=== PATIENT | female | born 1945 | race Caucasian/White ===

== ENCOUNTER 2023-11-30 00:50 | Emergency (ER) | payer OTHER ==
[~2023-11-30] VITALS: Ht 154.9 cm; Wt 68.0 kg
[2023-11-30 00:55] VITALS: BP 160/87; PULSE 68; RESP 17; TEMP 97.8; O2SAT 98
[2023-11-30 01:10] VITALS: BP 156/82; PULSE 68; RESP 17; TEMP 97.8
[2023-11-30 01:11] VITALS: O2SAT 98
[2023-11-30 01:15] LABS: APPEARANCE,URINE CLEAR (CLEAR); BILIRUBIN,URINE NEGATIVE (NEGATIVE); BLOOD, URINE 2+ (NEGATIVE); COLOR,URINE YELLOW (YELLOW); LEUKOCYTE ESTERASE ,URINE 1+ (NEGATIVE); NITRITE, URINE NEGATIVE (NEGATIVE); PROTEIN,URINE NEGATIVE (NEGATIVE); UGLUCOSE NEGATIVE (NEGATIVE); UROBILINOGEN,URINE 0.2 EU/dL (0.2 - 1)
[2023-11-30 01:22] LABS: BASOPHILS # (AUTO) 0.1 K/uL (0.00-0.22); BASOPHILS % (AUTO) 0.8 % (0.0-2.0); EOSINOPHILS # (AUTO) 0.1 K/uL (0-0.4); EOSINOPHILS % (AUTO) 1.7 % (0.0-4.0); HEMATOCRIT 34.1 % (36-48); HEMOGLOBIN 11.7 g/dL (12.0-16.0); LYMPHOCYTES # (AUTO) 2.6 K/uL (2.5-16.5); LYMPHOCYTES % (AUTO) 40.2 % (20.5-51.1); MEAN CORPUSCULAR HEMOGLOBIN 32 pg (27-31); MEAN CORPUSCULAR HGB CONC 34 g/dL (33-37); MEAN CORPUSCULAR VOLUME 94.8 fL (80-94); MONOCYTES # (AUTO) 0.5 K/uL (0.8-1.0); MONOCYTES % (AUTO) 7.9 % (1.7-9.3); NEUTROPHILS # (AUTO) 3.3 K/uL (1.8-7.7); NEUTROPHILS % (AUTO) 49.4 % (42.2-75.2); PLATELET COUNT (AUTO) 223 K/uL (140-450); RED CELL DISTRIBUTION WIDTH 13.2 % (11.6-13.7); WHITE BLOOD COUNT (AUTO) 6.6 K/uL (4.8-10.8)
[2023-11-30 01:23] LABS: BACTERIA,URINE 10-30 (MOD) /HPF (None Seen); MUCUS,URINE 1+ /LPF (None Seen); SQUAMOUS EPITHELIAL CELL,UR 0-3 (FEW) /LPF (0-3 (FEW))
[2023-11-30 01:32] LABS: ANION GAP 12.5 (8-16); CARBON DIOXIDE 26.4 mmol/L (21-32); CHLORIDE 100 mmol/L (98-107); CREATININE 0.8 mg/dL (0.6-1.3); GLUCOSE 107 mg/dL (74-106); POTASSIUM 3.9 mmol/L (3.5-5.1); SODIUM SERUM 135 mmol/L (136-145); UREA NITROGEN, BLOOD 10 mg/dL (7-18)
[2023-11-30] MEDS ORDERED: cefTRIAXone 1,000 MG VIAL ONE (01:32)
[2023-11-30] MEDS ORDERED: CIPR500T4 PO (01:33)
[2023-11-30] MEDS: KETOROLAC 30 MG/ML VIAL IVP ONE (01:37)
[2023-11-30] MEDS: NACL 0.9% 500 ML IV ONE (01:38)
[2023-11-30 01:42] LABS: LACTIC ACID 0.8 mmol/L (0.4-2.0)
[2023-11-30 01:47] LABS: ALANINE AMINOTRANSFERASE 17 U/L (12-78); ALBUMIN 3.6 g/dL (3.4-5.0); ALKALINE PHOSPHATASE 65 U/L (50-136); ASPARTATE AMINOTRANSFERASE 21 U/L (15-37); BILIRUBIN,DIRECT 0.1 mg/dL (0.0-0.3); TOTAL BILIRUBIN 0.4 mg/dL (0.0-1.0); TOTAL PROTEIN, SERUM 7.2 g/dL (6.4-8.2)
== END 2023-11-30 02:06 | disposition home or self-care (01) ==
LOC: MED 00:50
DX: N39.0 Urinary tract infection, site not specified (principal); R03.0 Elevated blood-pressure reading, without diagnosis of hypertension; Z88.6 Allergy status to analgesic agent
CPT/HCPCS: 36415; 80048; 80076; 81001; 83605; 84484; 85025; 87040; 87086; 93005; 96365; 96375; 99284; J0696; J1885; J7030